=== PATIENT | female | born 1995 | race Caucasian/White ===

== ENCOUNTER 2021-12-13 21:04 | Emergency (ER) | payer OTHER ==
[~2021-12-13] VITALS: Ht 170.2 cm; Wt 63.5 kg
--- NOTE | 2021-12-13 21:56 | NUR ---
Dr Cannon at bedside, MSE in progress.
[2021-12-13] MEDS ORDERED: DEXAMETHASONE 0.5 MG/5 ML LIQ UDC PO ONE (22:15)
[2021-12-13] MEDS ORDERED: IBUPROFEN 800 MG TABLET PO ONE (22:15)
[2021-12-13] MEDS ORDERED: DEXAMETHASONE 5 MG/5 ML LIQUID UDC ONE (22:25)
[2021-12-13] MEDS ORDERED: IBUPROFEN 800 MG TABLET ONE (22:25)
[2021-12-13] MEDS ORDERED: HYDROCODONE/APAP 5-325MG TABLET PO ONE (23:15)
[2021-12-13] MEDS ORDERED: HYDROCODONE/APAP 5-325MG TABLET ONE (23:16)
[2021-12-13] MEDS ORDERED: IBUP-1958 PO (23:39)
--- NOTE | 2021-12-13 23:47 | NUR ---
Patient discharged to home in stable condition. Written and verbal after care instructions given. Patient verbalizes understanding of instructions. Stressed follow up or return to ER for worsening s/s. pt ambulated with steady gait. no SOB. no chest pain. AOx4
[2021-12-13 23:48] VITALS: BP 111/76
== END 2021-12-13 23:49 | disposition home or self-care (01) ==
LOC: ER 21:45
DX: J02.9 Acute pharyngitis, unspecified (principal); Z20.822 Contact with and (suspected) exposure to COVID-19; Z88.0 Allergy status to penicillin
CPT/HCPCS: 86403; 87070; 87426; 99284; J8540; A4663